=== PATIENT | female | born 1980 | race African-American/Black ===

== ENCOUNTER 2016-08-30 23:29 | Emergency (ER) | payer OTHER ==
[~2016-08-30] VITALS: Ht 154.9 cm; Wt 131.8 kg
[2016-08-31 03:45] VITALS: BP 143/88
[2016-08-31] MEDS ORDERED: OxyCODONE HCL/ACETAMINOPHEN 5-325 MG TABLET PO ONE (03:45)
== END 2016-08-31 04:03 | disposition home or self-care (01) ==
LOC: EMS 23:30
DX: S43.102A Unspecified dislocation of left acromioclavicular joint, initial encounter (principal); F17.210 Nicotine dependence, cigarettes, uncomplicated; X58.XXXA Exposure to other specified factors, initial encounter; Y93.89 Activity, other specified; Y92.89 Other specified places as the place of occurrence of the external cause; Y99.8 Other external cause status
CPT/HCPCS: 99284

== ENCOUNTER 2016-12-12 13:24 | Emergency (ER) | payer OTHER ==
[~2016-12-12] VITALS: Ht 160 cm; Wt 118.0 kg
[2016-12-12 13:34] VITALS: BP 183/101
== END 2016-12-12 13:47 | disposition short-term general hospital (02) ==
LOC: EMS 13:26
DX: S61.511A Laceration without foreign body of right wrist, initial encounter (principal); S61.411A Laceration without foreign body of right hand, initial encounter; F17.210 Nicotine dependence, cigarettes, uncomplicated; W22.8XXA Striking against or struck by other objects, initial encounter; Y93.89 Activity, other specified; Y92.89 Other specified places as the place of occurrence of the external cause; Y99.8 Other external cause status
CPT/HCPCS: 99285

== ENCOUNTER 2017-11-28 19:10 | Emergency (ER) | payer OTHER ==
[~2017-11-28] VITALS: Ht 162.6 cm; Wt 136.0 kg
[2017-11-28] MEDS ORDERED: HYDROCODONE/ACETAMINOPHEN 5-325 MG TABLET PO ONE (21:00)
[2017-11-28 21:31] VITALS: BP 151/89
== END 2017-11-28 21:34 | disposition home or self-care (01) ==
LOC: EMS 19:11
DX: S83.91XA Sprain of unspecified site of right knee, initial encounter (principal); F17.210 Nicotine dependence, cigarettes, uncomplicated; Z98.890 Other specified postprocedural states; Z88.6 Allergy status to analgesic agent; X50.1XXA Overexertion from prolonged static or awkward postures, initial encounter; Y93.01 Activity, walking, marching and hiking; Y92.480 Sidewalk as the place of occurrence of the external cause; Y99.8 Other external cause status
CPT/HCPCS: 29530; 99284

== ENCOUNTER 2018-03-15 01:50 | Emergency (ER) | payer OTHER ==
[~2018-03-15] VITALS: Ht 152.4 cm; Wt 136.4 kg
[2018-03-15] MEDS ORDERED: HYDR-4061 PO (02:00)
[2018-03-15] MEDS ORDERED: CloNIDine HCL 0.2 MG TABLET PO ONE (03:30)
[2018-03-15] MEDS ORDERED: KETOROLAC TROMETHAMINE 60 MG/2 ML VIAL IM ONE (03:30)
[2018-03-15] MEDS ORDERED: CARISOPRODOL 350 MG TABLET PO ONE (03:30)
[2018-03-15] MEDS ORDERED: SODIUM CHLORIDE 0.9% 1,000 ML IV ONE (03:30)
[2018-03-15] MEDS ORDERED: MAGNESIUM SULFATE 2 GM/WATER 50 ML IV ONE (03:30)
[2018-03-15] MEDS ORDERED: ONDANSETRON HCL 4 MG TABLET PO ONE (03:30)
[2018-03-15 04:06] VITALS: BP 147/100
== END 2018-03-15 04:19 | disposition home or self-care (01) ==
LOC: EMS 01:51
DX: G44.209 Tension-type headache, unspecified, not intractable (principal); I10 Essential (primary) hypertension; F32.9 Major depressive disorder, single episode, unspecified; F41.9 Anxiety disorder, unspecified; F17.210 Nicotine dependence, cigarettes, uncomplicated; E66.9 Obesity, unspecified; Z90.710 Acquired absence of both cervix and uterus; Z90.49 Acquired absence of other specified parts of digestive tract; Z88.6 Allergy status to analgesic agent; Z68.43 Body mass index [BMI] 50.0-59.9, adult
CPT/HCPCS: 96372; 99284; J1885; J7030; Q0162; J3475

== ENCOUNTER 2019-05-16 09:46 | Emergency (ER) | payer OTHER ==
[~2019-05-16] VITALS: Ht 154.9 cm; Wt 150.0 kg
[~2019-05-16 09:46] MED LIST: HYDR-4061 PO
[2019-05-16] MEDS ORDERED: KETOROLAC TROMETHAMINE 60 MG/2 ML VIAL IM ONE (13:30)
[2019-05-16] MEDS ORDERED: TraMADol HCL 50 MG TABLET PO ONE (14:30)
[2019-05-16 14:59] VITALS: BP 145/85
== END 2019-05-16 15:13 | disposition home or self-care (01) ==
LOC: EMS 09:46
DX: M54.5 Low back pain (principal); M54.6 Pain in thoracic spine; G89.29 Other chronic pain; F41.9 Anxiety disorder, unspecified; F32.9 Major depressive disorder, single episode, unspecified; I10 Essential (primary) hypertension; F17.210 Nicotine dependence, cigarettes, uncomplicated; Z90.710 Acquired absence of both cervix and uterus; Z90.89 Acquired absence of other organs; Z88.6 Allergy status to analgesic agent
CPT/HCPCS: 74176; 81002; 81025; 96372; 99284; J1885